=== PATIENT | male | born 1960 | race Hispanic/Latino ===

== ENCOUNTER → 2018-03-15 | Outpatient (CLI) | payer OTHER, MEDICARE | END | disposition home or self-care (01) | LOC: SHCH 09:09 | PROVIDERS: ATTEND Internal Medicine Cardiovascular Disease | DX: Z09 Encounter for follow-up examination after completed treatment for conditions other than malignant neoplasm (principal) | CPT/HCPCS: 93971 ==

== ENCOUNTER → 2018-10-20 | Outpatient (CLI) | payer OTHER, MEDICARE ==
[~2018-10-20] MED LIST: IOHEXOL-350 75 ML VIAL IV ONE
[2018-10-20 15:30] LABS: CREATININE 1.2 mg/dL (0.5-1.5)
== END | disposition home or self-care (01) ==
LOC: RAH 14:35
PROVIDERS: ATTEND Internal Medicine Cardiovascular Disease
DX: I51.7 Cardiomegaly (principal); K76.0 Fatty (change of) liver, not elsewhere classified; M47.815 Spondylosis without myelopathy or radiculopathy, thoracolumbar region; I82.402 Acute embolism and thrombosis of unspecified deep veins of left lower extremity
CPT/HCPCS: 36415; 71275; 82565; 84520; Q9967

== ENCOUNTER 2020-02-14 05:30 | Day surgery (SDC) | payer OTHER, MEDICARE ==
[~2020-02-14] VITALS: Ht 162.6 cm; Wt 115.2 kg
[2020-02-14 06:25] VITALS: BP 141/92
[2020-02-14] MEDS ORDERED: SODIUM CHLORIDE 0.9% 1000ML 1,000 ML IV ONE (07:14)
[2020-02-14] MEDS ORDERED: LIDOCAINE HCL-MPF 2% 5ML VIAL ONE (07:18)
[2020-02-14] MEDS ORDERED: PROPOFOL 10 MG/ML 20ML VIAL IV ONE (07:18)
[2020-02-14 07:57] VITALS: BP 147/80
[2020-02-14 08:00] VITALS: BP 151/98
[2020-02-14 08:20] VITALS: BP 136/82
== END 2020-02-14 08:24 | disposition home or self-care (01) ==
LOC: ENDO 05:30 → DAH 05:30 → ENDO 08:24
PROVIDERS: ATTEND Internal Medicine Gastroenterology
DX: Z09 Encounter for follow-up examination after completed treatment for conditions other than malignant neoplasm (principal); K63.5 Polyp of colon; Z86.010 Personal history of colon polyps; K29.50 Unspecified chronic gastritis without bleeding; K62.1 Rectal polyp; K57.30 Diverticulosis of large intestine without perforation or abscess without bleeding; K64.1 Second degree hemorrhoids; K21.9 Gastro-esophageal reflux disease without esophagitis; E66.01 Morbid (severe) obesity due to excess calories; I73.9 Peripheral vascular disease, unspecified; M19.90 Unspecified osteoarthritis, unspecified site; K22.8 Other specified diseases of esophagus; K31.89 Other diseases of stomach and duodenum; Z20.828 Contact with and (suspected) exposure to other viral communicable diseases; F17.200 Nicotine dependence, unspecified, uncomplicated
CPT/HCPCS: 43239; 45380; 45385; 88305; 88342; A4215; A4221; A4222; A4223; A4606; A4620; A4649; A4657; A4663; C9803; J2704; J3490; J7030; U0003

== ENCOUNTER → 2022-11-19 | Outpatient (CLI) | payer OTHER, MEDICARE | END | disposition home or self-care (01) | LOC: SHCH 08:14 | PROVIDERS: ATTEND Internal Medicine Cardiovascular Disease | DX: I11.9 Hypertensive heart disease without heart failure (principal); R06.02 Shortness of breath; E78.5 Hyperlipidemia, unspecified; F17.200 Nicotine dependence, unspecified, uncomplicated | CPT/HCPCS: 93306 ==

== ENCOUNTER → 2023-09-09 | Outpatient (CLI) | payer MEDICARE | END | disposition home or self-care (01) | LOC: SHCH 13:01 | PROVIDERS: ATTEND Internal Medicine Cardiovascular Disease | DX: I87.2 Venous insufficiency (chronic) (peripheral) (principal); I73.9 Peripheral vascular disease, unspecified | CPT/HCPCS: 93925; 93970 ==